=== PATIENT | male | born 1960 | race Hispanic/Latino ===

== ENCOUNTER 2024-08-15 15:28 | Emergency (ER) | payer OTHER ==
[~2024-08-15] VITALS: Ht 177.8 cm; Wt 100.9 kg
[2024-08-15 15:32] VITALS: PULSE 79; RESP 18; TEMP 98.2
[2024-08-15] MEDS ORDERED: ASPIRIN81 MG PO (15:42)
[2024-08-15] MEDS ORDERED: PLAVIX75 MG PO (15:42)
[2024-08-15] MEDS ORDERED: LIPITOR20 MG PO (15:42)
[2024-08-15] MEDS ORDERED: METOPROLOL SUCC50 MG PO (15:42)
[2024-08-15] MEDS: BACITRACIN ZINC 0.9GM TP ONE (16:09)
[2024-08-15] MEDS: ACETAMINOPHEN 325 MG TAB PO ONE (16:09)
[2024-08-15 16:26] VITALS: BP 129/85; PULSE 75; RESP 16; TEMP 98.2; O2SAT 97
== END 2024-08-15 16:18 | disposition home or self-care (01) ==
LOC: FSED 15:40
DX: T23.232A Burn of second degree of multiple left fingers (nail), not including thumb, initial encounter (principal); T23.132A Burn of first degree of multiple left fingers (nail), not including thumb, initial encounter; X12.XXXA Contact with other hot fluids, initial encounter; Y92.89 Other specified places as the place of occurrence of the external cause; I10 Essential (primary) hypertension; E78.5 Hyperlipidemia, unspecified; F17.210 Nicotine dependence, cigarettes, uncomplicated
CPT/HCPCS: 99284